=== PATIENT | male | born 1975 | race Two or more races ===

== ENCOUNTER 2024-11-23 11:55 | Emergency (ER) | payer MEDICAID, SELFPAY ==
[2024-11-23 12:03] VITALS: BP 173/116; PULSE 102; RESP 18; TEMP 36.6; O2SAT 98; BMI 34.3
--- NOTE | 2024-11-23 12:09 | PD.EDRME ---
Rapid Medical Screening Exam RME Arrival date/time: 11/23/24 11:55 48 yo m present to ED for c/o of while working at home on machine, a piece of rock broke off and hit face. I have greeted and performed a focused initial assessment of this patient. A comprehensive ED assessment and evaluation of the patient, analysis of all test results, and completion of the medical decision making process will be conducted by additional ED providers. Chief Complaint: Wound/Laceration Time Seen by Provider: 11/23/24 12:01 Vital signs: Vital Signs Temperature 97.9 F 11/23/24 12:03 Pulse Rate 102 H 11/23/24 12:03 Respiratory Rate 18 11/23/24 12:03 Blood Pressure 173/116 H 11/23/24 12:03 Pulse Oximetry (%) 98 11/23/24 12:03 Oxygen Delivery Method Room Air 11/23/24 12:03
--- NOTE | 2024-11-23 12:10 | XR_ITS ---
Examination: CT brain head without contrast. 2-D sagittal coronal reconstructions Date and time of exam:11/23/2024, 12:31 PM INDICATION: Trauma CTDI: vol (mGy):54.8 DLP: (mGycm):1093 Technique: Multiple CT axial sections of the brain have been obtained, 5 mm slice thickness. Contrast has not been administered. 2-D sagittal, coronal reconstructions have been obtained Low dose protocols were performed. One or more of the following dose reduction techniques were used; automated exposure control, adjustment of the mA and/or KV according to patient size, use of iterative reconstruction technique. Findings: No significant ventricular enlargement. Intra-axial or extra-axial hemorrhage density is not seen. No mass effect or midline shift Basal cisterns are not remarkable. Fourth ventricle is midline. Cranial vault intact. Mucosal thickening in the maxillary sinuses. Impression: Negative for acute hemorrhage, mass effect or midline shift Maxillary sinusitis.
--- NOTE | 2024-11-23 12:10 | XR_ITS ---
Examination: CT maxillofacial, without intravenous contrast. 2-D sagittal reconstructions. 3-D reconstructions. Date and time of exam:11/23/2024, 12:31 PM Trauma CTDI: vol (mGy):55.3 DLP: (mGycm):1248 Technique: Multiple axial images of maxillofacial region, 3.0 mm slice thickness. 2-D sagittal and coronal reconstructions. 3-D reconstructions. Low dose protocols were performed. One or more of the following dose reduction techniques were used; automated exposure control, adjustment of the mA and/or KV according to patient size, use of iterative reconstruction technique. Findings: No evidence of fracture or dislocation. Fusion postop thickening of the maxillary, ethmoid and sphenoid sinuses.. IMPRESSION: No acute bony abnormality. Pansinusitis
[2024-11-23] MEDS: TETANUS,DIPHTHERIA TOXOIDS/PF (ADULT) 0.5 ML SYRINGE IMi (12:19)
[2024-11-23 13:48] VITALS: BP 167/99; PULSE 78; RESP 16; TEMP 36.7; O2SAT 98
--- NOTE | 2024-11-23 14:14 | PD.EDWOUND ---
ED Wound/Laceration-RME/HPI General Chief Complaint: Wound/Laceration Stated Complaint: LACERATION TO RIGHT EYE AND UPPER LIP Time Seen by Provider: 11/23/24 12:01 Arrival date/time: 11/23/24 11:55 This is a 48 year old male that was sharpening a knife on a a machina and the machine cam apart and hit him in the face. NO LOC . Pt has a laceration above his right lip and actually on his lip. RME / HPI RME / HPI narrative: 11/23/24 11:55 48 yo m present to ED for c/o of while working at home on machine, a piece of rock broke off and hit face. I have greeted and performed a focused initial assessment of this patient. A comprehensive ED assessment and evaluation of the patient, analysis of all test results, and completion of the medical decision making process will be conducted by additional ED providers. Related Data Previous Rx's ?Medication ?Instructions ?Recorded ibuprofen 800 mg tablet 800 mg PO Q6H PRN pain #20 tabs 11/23/24 Allergies Allergy/AdvReac Type Severity Reaction Status Date / Time No Known Allergies Allergy Verified 11/23/24 11:58 Review of Systems Review of Systems Systems Reviewed: All systems reviewed, normal except as documented Past Medical History Past Medical History Comments PMH COMMENT: see hpi ED Exam General General appearance: Present alert and in no apparent distress Head Head exam: Present atraumatic Eye Eye exam: Present normal appearance, PERRL and EOMI ENT ENT exam: Present normal exam, normal oropharynx and mucous membranes moist Neck Neck exam: Present normal inspection, full ROM and trachea midline Chest Chest inspection: Present normal inspection and symmetric chest wall rise Respiratory Respiratory exam: Present normal lung sounds bilaterally Cardiovascular Cardiovascular exam: Present regular rate, normal rhythm and normal heart sounds Abdominal Exam Abdominal exam: Present soft Extremities Exam Extremities exam: Present normal inspection and full ROM Back Exam Back exam: Present normal inspection and full ROM Neurological Exam Neurological exam: Present alert, oriented X3 and CN II-XII intact Psychiatric Psychiatric exam: Present normal affect and normal mood Skin Skin exam: Present warm, dry and other (1.5 cm vertical laceration above right side of lip, does not cross judit border, laceration inside mouth under right upper lip, very small and not deep, approx 0.5 cm laceration on lip vertical on right side of upper lip, does not cross judit border, right sided facial swelling) Course Quality Measures none Orders Category Date Time Status CT facial bones wo con Stat Exams 11/23/24 12:[address] head/brain wo con Stat Exams 11/23/24 12:10 Completed Amoxicillin/Pot Clav 875 [Augmentin 875] Med 11/23/24 15:50 Discontinued 1 tab PO X1 ONE Ibuprofen Tab [Motrin Tab] Med 11/23/24 15:50 Discontinued 800 mg PO X1 ONE Lidocaine 1% 20 ml [Xylocaine 1% 20 ML] Med 11/23/24 14:45 Discontinued 10 ml INFL X1 ONE Lidocaine 1% 20 ml [Xylocaine 1% 20 ML] Med 11/23/24 14:45 Discontinued 10 ml INFL X1 ONE Lidocaine 1% Pf 5 ml [Xylocaine 1% Pf 5 ml] Med 11/23/24 14:22 Discontinued 10 ml INFL X1 ONE Tetanus, Diphtheria Toxoids/Pf [Tenivac-Adult] Med 11/23/24 12:10 Discontinued 0.5 ml IMI .ONCE ONE Vital Signs Vital signs: Vital Signs Temperature 97.9 F 11/23/24 12:03 Pulse Rate 102 H 11/23/24 12:03 Respiratory Rate 18 11/23/24 12:03 Blood Pressure 173/116 H 11/23/24 12:03 Pulse Oximetry (%) 98 11/23/24 12:03 Oxygen Delivery Method Room Air 11/23/24 12:03 Procedures -ED Laceration Laceration 1: Site: lip Side (If applicable): right (upper lip) Size (cm): 0.5 Description: other (right upper lip does not cross judit border ) Depth: simple, single layer Local Anesthetic: lidocaine 1% Amount of anesthesia used (mL): 1 Pre-repair: wound explored (pieces of rock removed) and irrigated extensively Skin layer closed with: nylon Size (cm): 5-0 Number of sutures: 1 Technique: simple, interrupted Laceration 2: Site: other (above right upper lip ) Side (If applicable): right Size (cm): 1.5 Description: irregular Depth: simple, single layer Local Anesthetic: lidocaine 1% Amount of anesthesia used (mL): 2 Pre-repair: wound explored and irrigated extensively Skin layer closed with: nylon Size (cm): 4-0 Number of sutures: 3 Technique: simple, interrupted Wound / Laceration MDM Narrative MDM Narrative:: face CT: Findings: No evidence of fracture or dislocation. Fusion postop thickening of the maxillary, ethmoid and sphenoid sinuses.. IMPRESSION: No acute bony abnormality. Pansinusitis smoking ct head: Findings: No significant ventricular enlargement. Intra-axial or extra-axial hemorrhage density is not seen. No mass effect or midline shift Basal cisterns are not remarkable. Fourth ventricle is midline. Cranial vault intact. Mucosal thickening in the maxillary sinuses. Impression: Negative for acute hemorrhage, mass effect or midline shift Maxillary sinusitis. 3 sutures vertical under nose on the right side approx 1.5cm one suture vertical lip 0.5cm 1 suture 5o nylon Patient told that sutures can be removed in in 7 days. Pt told to come back to ED if symptoms chnage or worsen. Patient data External records reviewed:: [facility] previous records Clinical information provided by:: patient Social determinants that could affect healthcare access:: none Patient has the following chronic illnesses:: none How is presenting disease/condition affected by chronic disease/condition?: no chronic disease Evaluation data The following diagnostics were reviewed and interpreted by me:: radiology exam(s) Lab and/or radiology exams considered but not ordered:: none Interpretation Summary: see note Medications / Prescriptions Medications or Prescriptions considered but not ordered:: none Medication administrations:: Medication Administration History Discontinued Medications Amoxicillin/Clavulanate Potassium (Amoxicillin/Pot Clav 875 Tablet) 1 tab PO X1 ONE Stop: 11/23/24 15:51 Last Admin: 11/23/24 15:57 Dose: 1 tab Documented By: NI Ibuprofen (Ibuprofen Tab 400 Mg Tablet) 800 mg PO X1 ONE Stop: 11/23/24 15:51 Last Admin: 11/23/24 15:58 Dose: 800 mg Documented By: NI Lidocaine HCl (Lidocaine Inj Pf 1% 5 Ml Vial) 10 ml INFL X1 ONE Stop: 11/23/24 14:23 Last Admin: 11/23/24 16:00 Dose: Not Given Documented By: NI Non-Admin Reason: Cancelled by Provider Lidocaine HCl (Lidocaine Hcl 1% 20 Ml Vial) 10 ml INFL X1 ONE Stop: 11/23/24 14:46 Lidocaine HCl (Lidocaine Hcl 1% 20 Ml Vial) 10 ml INFL X1 ONE Stop: 11/23/24 14:46 Last Admin: 03/01/25 15:59 Dose: 10 ml Documented By: DB Tetanus/Diphtheria Toxoids (Tetanus,Diphtheria Toxoids/Pf (Adult) 0.5 Ml Syringe) 0.5 ml IMi .ONCE ONE Stop: 11/23/24 12:11 Last Admin: 11/23/24 12:19 Dose: 0.5 ml Documented By: DO see mar Consultations Consultation(s) initiated? (list below): No Diagnosis Wound Differential Diagnosis: laceration, abscess, abrasion and avulsion of skin Most likely diagnosis given after review of the tests above:: l Admission Indicated Admission indicated?: not indicated Admission Request Was there a request for admission?: No Disposition Plan Disposition Plan: Discharge Discharge Attestation Discharge Attestation: The patient and all family members were given an opportunity to ask questions and understood the discharge instructions. Discharge instructions specifically effects, indications for sooner follow up or return to the emergency department, and the expected course of current diagnosis. Patient condition: Stable Discharge Plan Plan Patient Disposition: HOME (Self Care) Patient condition on transfer: Stable Prescriptions/Referrals Prescriptions/Med Rec: New ibuprofen 800 mg tablet 800 mg PO Q6H PRN (Reason: pain) Qty: 20 0RF Referrals: Mello Koch MD [Primary Care Provider] - In 1 week Problem List Clinical Impression: Laceration, Laceration of lip Patient/Caregiver Discharge Instructions Discharge Activity: activity as tolerated Education Materials: ED Laceration: All Closures, ED Laceration, Lip or Mouth, ED Wound Check (No Infection) Additional Instructions: Patient can have sutures removed in 1 week. Ezio un juan c con sotomayor medico de cabecera en las proximas 24-48 horas. Regrese a la paulina de emergencias si hay evidencia de que los signos o sintomas empeoran. Print Language: Polish Stand Alone Forms: Claudia Award Info., Patient Portal Info Letter RADHA/KJ Supervising Physician RADHA/KJ Supervising Physician: brian
--- NOTE | 2024-11-23 14:15 | PC.NURSE ---
Assume care of this 48 year old male with chief c/o of laceration to the right side of his upper lip and swelling to the right eye lid after a feed grinder wheel broke off as he was sharping his axe at home. Pt denied any LOC,vision changes, or headache. Pt was given update on plan of care. at bedside, call light within reach.
[2024-11-23] MEDS: AMOXICILLIN/POT CLAV 875 TABLET 1 TAB PO (15:57)
[2024-11-23] MEDS: IBUPROFEN TAB 400 MG TABLET 800 MG PO (15:58)
[2024-11-23] MEDS: LIDOCAINE HCL 1% 20 ML VIAL 10 ML INFL (15:59)
[2024-11-23 16:01] VITALS: BP 162/99; PULSE 88; RESP 16; TEMP 36.8; O2SAT 99
== END 2024-11-23 16:02 | disposition home or self-care (01) ==
PROVIDERS: Emergency Provider Emergency Medicine; PCP Family Medicine
DX: S01.511A Laceration without foreign body of lip, initial encounter (principal); W20.8XXA Other cause of strike by thrown, projected or falling object, initial encounter; Y93.89 Activity, other specified; Y92.007 Garden or yard of unspecified non-institutional (private) residence as the place of occurrence of the external cause; Z23 Encounter for immunization
CPT/HCPCS: 12013; 70450; 70486; 90471; 90714; 99284; J3490; A9270